=== PATIENT | male | born 1965 | race Caucasian/White ===

== ENCOUNTER 2025-06-27 12:16 | Day surgery (SDC) | payer OTHER ==
[~2025-06-27] VITALS: Ht 175.3 cm; Wt 77.9 kg
[2025-06-27] VITALS (18 sets, daily range): BP systolic 95–134; BP diastolic 68–85
[~2025-06-27 12:16] MED LIST: NAPR220 PO; NAPR500 PO; OXYACE5T PO; SULTRISS PO
--- NOTE | 2025-06-27 12:57 | NUR ---
Ambulatory in Day Surgery WITH STEADY GAIT. History, Chart, Medications and Allergies reviewed before start of procedure. Pre-Op teaching done. Pt verbalizes understanding. Patient confirms NPO status and agrees with scheduled surgery. GLASSES AND DENTURES IN PLACE IN DAY SURGERY.
--- NOTE | 2025-06-27 13:52 | NUR ---
06/27/25 1352 Gordon Ny CONFIRMED AND REVIEWED H&P, MEDCICATIONS, ALLERGIES, MEDICAL HISTORY, RESPIRATORY HISTORY, VITAL SIGNS, 3-LEAD EKG, CONSENTS, AND PHYSICIAN ORDERS. PATIENT CONFIRMS NPO STATUS AND AGREES WITH SCHEDULED PROCEDURE. MONITOR INTACT WITH CONTINUOUS PULSE OXIMETRY, CAPNOGRAPHY, 3-LEAD EKG, INTERMITTENT BP. SUPPLEMENTAL O2 TO BE TITRATED THROUGHOUT PROCEDURE TO MAINTAIN O2 SATURATION ABOVE 90%. PATIENT DETERMINED TO BE ASA APPROPRIATE FOR PROPOFOL SEDATION PRIOR TO START OF PROCEDURE BY DR. PICKETT
--- NOTE | 2025-06-27 14:24 | NUR ---
PT WIDE AWAKE, Discharge instructions reviewed with patient. Patient verbalizes understanding. Copy given to patient to take home. DR PICKETT AT BEDSIDE TALKING WITH PT. [facility] CALLED, HERE WAITING
--- NOTE | 2025-06-27 14:30 | NUR ---
Discharged via wheelchair to private car for ride home.
== END 2025-06-27 14:30 | disposition home or self-care (01) ==
LOC: ORSCMMR 12:16 → ORSCSDS 12:16
PROVIDERS: Surgery
PROC: 0DJD8ZZ Inspection of Lower Intestinal Tract, Via Natural or Artificial Opening Endoscopic (ICD-10-PCS; principal; 2025-06-27 13:45)
DX: Z12.11 Encounter for screening for malignant neoplasm of colon (principal); K57.30 Diverticulosis of large intestine without perforation or abscess without bleeding; K64.8 Other hemorrhoids; Z87.891 Personal history of nicotine dependence
CPT/HCPCS: J2704; J7120